=== PATIENT | female | born 2000 | race Caucasian/White ===

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

== ENCOUNTER 2021-03-24 21:20 | Inpatient (IN) ==
[2021-03-24 23:54] LABS: Hematocrit (blood only) 32.7 % (37-47); Hemoglobin 11.5 g/dL (12.0-16.0); Mean Corpuscular Hgb Conc 35.2 g/dL (32-36); Mean Corpuscular Volume 91.1 fL (80-100); Mean Platelet Volume 9.2 fL (7.4-10.4); Platelet Count 295 K/uL (130-400); RDW Coefficient of Variation 13.2 % (11.5-14.5); RDW Standard Deviation 43.8 fL (36.4-46.3); Red Blood Count 3.59 M/uL (4.2-5.4); White Blood Count 10.93 K/uL (4.8-10.8)
[2021-03-25 00:12] LABS: Alanine Aminotransferase 30 (12-78); Albumin Level 2.3 gm/dl (3.4-5.0); Aspartate Aminotransferase 23 U/L (15-37); BUN Creatinine Ratio 8.8 (10-20); Blood Urea Nitrogen 5 mg/dl (7-18); Calcium 9.1 mg/dl (8.5-10.1); Carbon Dioxide 25 mmol/L (21-32); Chloride 105 mmol/L (98-107); Creatinine Clr Calc Pharmacy 162.7 ml/min; Est GFR (African American) > 150.0 ml/min; Glucose 74 mg/dl (70-99); Potassium 3.3 mmol/L (3.5-5.1); Sodium 136 mmol/L (136-145)
[2021-03-25 00:14] LABS: Albumin Globulin Ratio 0.5 (0.9-2); Alkaline Phosphatase 194 U/L (45-117); Bilirubin,Total 0.5 mg/dl (0.2-1); Globulin 4.3 gm/dl (2.5-4.0); Total Protein 6.6 gm/dl (6.4-8.2)
[2021-03-25 01:28] LABS: Protein Creatinine Ratio Urine 0.2 (0-0.2); Total Protein Urine Random 24.1 mg/dl (0-11.9)
[2021-03-25] MEDS ORDERED: OXYTOCIN 30 UNITS/500 ML BAG IV PRN ×2 (01:46→02:02)
--- NOTE | 2021-03-25 01:52 | History & Physical Report ---
Date of Service March 25, 2021 Assessment & Plan (1) Gestational hypertension: Plan: 20 y/o G1 at 39 wga w/ gHTN VSS, mild range BPs Fetus cat 1 gHTN - pt now notes SIMMONS but it was not even bad enough to take tylenol and has had it before so do not think SF. Given GA, rec IOL Labor - 35cc kamara placed after verbal consent obtained. Will start pit, titrate to 10 while kamara in plac MJ use - UDS ordered GBS neg Epidural PRN History of Present Illness Chief Complaint: LOF Primary Care Provider: Deepak Riley, 20 y/o G1 at 39 wga w/ ROCIO 04/01 by first tri US presented earlier this evening due to complaints of LOF. She was instructed to present for eval after noting filling a pad in 30minutes with fluid. On arrival, she denied further LOF and was ruled out for rupture and SVE was unchanged from clinic visit. However, BP was noted to be mildly elevated at first, thought due to just sitting down. BPs continued to be elevated on repeat pressures and so PET labs were obtained and wnl. It was then seen that at last triage visit, she again had mild BPs. With these BPs being elevated >4 hours apart, she did meet criteria for gHTN and was recommended for IOL at this GA. Notes very slight SIMMONS but not enough to warrant tylenol. Denies vision change, CP, SOB, RUQ/epigastric pain. 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 Hx irreg periods enver had pap denies hx STIs Allergies Allergy/AdvReac Type Severity Reaction Status Date / Time No Known Drug Allergies Allergy Verified 03/23/21 09:58 Home Medications Medication Instructions Recorded Confirmed Type docusate sodium 100 mg capsule 100 mg PO DAILY 08/21/20 03/24/21 History (Colace) + Iron 1 tab PO DAILY 03/16/21 03/24/21 History Unisom SleepGels 1 tab PO HS 03/16/21 03/24/21 History Patient History Medical History (Updated 03/25/21 @ 02:06 by Lali Mcnulty MD) Depression Gastritis History of varicella vaccination IBS (irritable bowel syndrome) Surgical History (Updated 03/25/21 @ 02:04 by Lali Mcnulty MD) History of cholecystectomy S/P colonoscopy S/P wisdom tooth extraction Family History Father Hypertension Grandmother (Maternal) Colorectal cancer Denies family history of Ovarian cancer Prostate cancer Breast cancer Social History Smoking Status: Current every day smoker Tobacco Type: E-cigarettes / Vaping Second Hand Exposure: No; Hx Alcohol Use: No Hx Substance Use: Yes Non-Prescribed Medications: Marijuana Last Used Substance: Days (ago) Preferred Language: British Communication Ability: Effective Visual Impairment: Limited Hearing Ability: Normal Fiber Optics Supervisor Required: No Beliefs That Will Affect Care: None marital status: Single marital status details: Kuldeep Rios (20) [phone] Current Living Situation: Significant Other Current Living Situation Comment: Lives with fiance and fish current occupational status: student current occupation: technical expert student Other Information That Helps Us Care for You: No Feels Safe at Home: Yes Safety Concerns: Feels Safe At This Time Seatbelt Use: always Sunscreen Use: Yes Assistive Devices: Glasses Results & Data ([facility]) Vital Signs (Past 12 Hours) Vital Signs Temp Pulse Resp BP 03/25/21 01:36 82 143/89 H 03/25/21 01:18 69 119/68 03/25/21 00:48 84 137/81 03/25/21 00:19 77 138/94 03/24/21 23:48 69 157/78 H 03/24/21 23:43 83 168/88 H 03/24/21 23:28 84 163/95 H 03/24/21 23:13 81 157/95 H 03/24/21 23:04 69 157/99 H 03/24/21 22:59 72 153/89 H 03/24/21 22:45 97 H 144/83 H 03/24/21 22:41 74 148/84 H 03/24/21 22:36 85 144/86 H 03/24/21 22:31 76 141/87 H 03/24/21 22:30 75 146/94 H 03/24/21 21:45 97.9 F 18 03/24/21 21:38 102 H 139/97 Laboratory Results OB Labs: Blood Type A Negative 09/03/20 Antibody Screen NEGATIVE 01/07/21 Hemoglobin 11.3 g/dL (12.0-16.0) L 01/07/21 Hematocrit 32.7 % (37-47) L 01/07/21 Mean Corpuscular Volume 87.4 fL (80-100) 09/03/20 Platelet Count 350 K/uL (130-400) 09/03/20 Rubella IgG Antibody Immune (Immune) 09/03/20 Rapid Plasma Reagin Nonreactive (Nonreactive) 09/03/20 Hepatitis B Surface Antigen Neg (Neg) 09/03/20 HIV (1&2) Ab and P24 Ag, 4th Gener Neg (Neg) 09/03/20 Glucose 1 Hour 50 gm Load 142 mg/dl (70-130) H 01/07/21 Maternal Serum Alpha Fetoprotein 44.1 ng/mL 10/15/20 OB Optional Labs: Chlamydia trachomatis RNA NOT DETECTED (NOT DETECTED) 09/03/20 Neisseria gonorrhoeae RNA NOT DETECTED (NOT DETECTED) 09/03/20 Thyroid Stimulating Hormone (TSH) 2.880 uIu/ml (0.510-4.91) 04/15/19 Alpha Fetoprotein Triple Screen SEE NOTE 10/15/20 Labs Reviewed: low risk panorama neg cf/sma neg afp urine tox positive MJ Coding Level of Care Code None Diagnoses Gestational hypertension O13.9
[2021-03-25] MEDS: LACTATED RINGER'S 1,000 ML IV PRN ×4 (02:55→23:27)
[2021-03-25] MEDS ORDERED: ACETAMINOPHEN 500 MG TAB PO PRN (05:01)
[2021-03-25 05:59] LABS: Amphetamines+Metham, Urine Neg (Neg); Barbiturates, Urine Neg (Neg); Benzodiazepine, Urine Neg (Neg); Cocaine, Urine Neg (Neg); MDMA (Ecstacy), Urine Neg (Neg); Methadone, Urine Neg (Neg); Opiate, Urine Neg (Neg); Phencyclidine, Urine Neg (Neg)
[2021-03-25] MEDS ORDERED: MAG SULFATE 4GM BOLUS FROM BAG IV ONE (09:53)
[2021-03-25] MEDS ORDERED: SODIUM CHLORIDE 0.9% INJ 10 ML VIAL ONE (10:21)
[2021-03-25] MEDS ORDERED: ePHEDrine sulfate 50 MG/ML AMP ONE (10:21)
[2021-03-25] MEDS ORDERED: fentaNYL 2MCG/ML ROPIVACAINE 1.25MG/ML 100 ML BAG EPI ONE (10:21)
[2021-03-25] MEDS ORDERED: BUPIVACAINE 0.25% 30 ML VIAL ONE (10:21)
[2021-03-25] MEDS ORDERED: fentaNYL citrate 100 MCG/2 ML VIAL ONE (10:21)
[2021-03-25] MEDS ORDERED: ONDANSETRON INJ 2 MG/ML 2 ML VIAL IV PRN ×2 (10:51→11:40)
[2021-03-25] MEDS: MAGNESIUM SULFATE / WTR 40 GM/1,000 ML BAG IV SCH (10:59)
--- NOTE | 2021-03-25 11:21 | Anesthesiology Consultation ---
Date of Service March 25, 2021 Assessment & Plan (1) Encounter for pre-operative examination: Chart Review Chart Review: Acceptable Risk for Labor Epidural History Height/Weight Height: 5 ft 1 in Weight: 86.183 kg Allergies Allergy/AdvReac Type Severity Reaction Status Date / Time No Known Drug Allergies Allergy Verified 03/23/21 09:58 Medications Home Medications Medication Instructions Recorded Confirmed Last Taken docusate sodium 100 mg capsule 100 mg PO DAILY 08/21/20 03/24/21 03/15/21 (Colace) + Iron 1 tab PO DAILY 03/16/21 03/24/21 03/15/21 Unisom SleepGels 1 tab PO HS 03/16/21 03/24/21 03/15/21 Active Medications Generic Name Dose Route Start Last Admin Trade Name Freq PRN Reason Stop Dose Admin Acetaminophen 1,000 mg 03/25/21 05:01 03/25/21 05:08 Acetaminophen 500 Mg Tab PO 04/24/21 05:00 1,000 mg Q8 PRN Administration Pain Lactated Ringer's 1,000 mls @ 125 mls/hr 03/25/21 01:46 03/25/21 10:09 Lr IV 03/27/21 01:45 999 mls/hr .Q8H PRN Administration L&D Protocol Protocol Oxytocin 30 units in 500 mls @ 10 mls/hr 03/25/21 02:02 03/25/21 09:05 Pitocin IV 03/27/21 02:01 0.6 units/hr .Q24H PRN 10 mls/hr Labor Induction/Augmentation Titration Protocol 0.6 UNITS/HR Magnesium Sulfate 40 gm in 1,000 mls @ 50 mls/hr 03/25/21 10:00 03/25/21 10:59 Magnesium Sulfate / Wtr IV 04/24/21 09:59 200 mls/hr .Q20H ANGELO Administration Ondansetron HCl 4 mg 03/25/21 10:51 03/25/21 11:14 Ondansetron Inj 2 Mg/Ml 2 Ml Vial IV 04/24/21 10:50 4 mg Q4H PRN Administration Nausea Past Medical History Medical History (Updated 03/25/21 @ 11:21 by Fred Riggins MD) Depression Gastritis History of varicella vaccination IBS (irritable bowel syndrome) PIH ( induced hypertension) Past Family History Family History Father Hypertension Grandmother (Maternal) Colorectal cancer Denies family history of Ovarian cancer Prostate cancer Breast cancer Past Surgical History Surgical History History of cholecystectomy S/P colonoscopy S/P wisdom tooth extraction Social History Smoking Status: Current every day smoker tobacco type: e-cigarettes Hx Alcohol Use: No Hx Substance Use: Yes substance use type: marijuana Last Used Substance: Days (ago) Physical Exam Vital Signs Last Vital Signs Temp 36.6 C 03/25/21 07:30 Pulse 79 03/25/21 11:18 Resp 18 03/25/21 08:00 BP 160/109 H 03/25/21 11:15 Pulse Ox 97 03/25/21 11:18 Testing Laboratory Results 03/24/21 23:44 03/24/21 23:44
--- NOTE | 2021-03-25 11:21 | Communication Note ---
Date of Service: March 25, 2021 BP noted. Patient is experiencing severe anxiety, consistent with panic attack, since discussion of severe diagnosis and initiation of magnesium, as well as increase in discomfort after ROM occurred during last cervix exam. I am hesitant to use IV antihypertensive until we see how the impending epidural affects her BP to avoid bottoming her out. Close observation continues. At this time anxiety is present and SIMMONS, RUQ pain and vision changes are not present.
[2021-03-25] MEDS ORDERED: NALOXONE HCL 1 MG in SODIUM CHLORIDE 0.9% 1000ML 1,000 ML IV PRN (11:40)
[2021-03-25] MEDS ORDERED: ePHEDrine sulfate 50 MG/ML AMP IV PRN (11:40)
[2021-03-25] MEDS ORDERED: NALOXONE HCL 0.4 MG/1 ML VIAL/CARP IV PRN (11:40)
[2021-03-25] MEDS ORDERED: CALCIUM CARBONATE 500 MG CHEWABLE TAB PO PRN (14:10)
[2021-03-25] MEDS: fentaNYL 2MCG/ML ROPIVACAINE 1.25MG/ML 100 ML BAG EPI PRN ×3 (14:30→22:25)
[2021-03-25] MEDS ORDERED: NURSING L&D Epidural Breakthrough Pain Update ONE (14:39)
[2021-03-25] MEDS ORDERED: ROPIVACAINE 0.5% 5 MG/ML 30 ML VIAL ONE (15:09)
[2021-03-25] MEDS ORDERED: LIDOCAINE 2%/EPINEPHRINE 1:200,000 20 ML SDV ONE (15:09)
--- NOTE | 2021-03-25 17:29 | Labor Progress Brief Note ---
Date of Service March 25, 2021 Subjective Patient comfortable Assessment & Plan (1) Gestational hypertension: Plan: With severe features (BP) on magnesium Induction continues with pitocin, AROM, epidural Admission and Anticipated Discharge Date Admission Date: March 25, 2021 Physical Exam Genitourinary: LOF clear continues FHT Cat 1 [place] Q3 Results & Data ([facility]) Vital Signs (Past 12 Hours) Vital Signs Temp Pulse Resp BP Pulse Ox 03/25/21 17:24 82 137/67 03/25/21 17:23 79 97 03/25/21 17:18 88 98 03/25/21 17:13 87 99 03/25/21 17:11 76 151/87 H 03/25/21 17:08 85 99 03/25/21 17:03 106 H 99 03/25/21 17:00 18 03/25/21 16:58 83 98 03/25/21 16:55 74 130/77 03/25/21 16:53 102 H 98 03/25/21 16:48 73 98 03/25/21 16:43 72 100 03/25/21 16:39 72 124/75 03/25/21 16:38 70 100 03/25/21 16:33 75 100 03/25/21 16:30 97.7 F 18 03/25/21 16:28 72 100 03/25/21 16:24 73 122/65 03/25/21 16:23 68 100 03/25/21 16:18 102 H 100 03/25/21 16:13 75 99 03/25/21 16:10 73 129/73 03/25/21 16:08 71 100 03/25/21 16:03 79 98 03/25/21 16:00 18 03/25/21 15:58 77 100 03/25/21 15:53 97 H 126/79 99 03/25/21 15:51 76 121/79 03/25/21 15:49 67 124/79 03/25/21 15:48 92 H 98 03/25/21 15:47 73 125/83 03/25/21 15:45 88 136/76 03/25/21 15:43 102 H 136/72 100 03/25/21 15:41 99 H 134/75 03/25/21 15:39 66 136/80 03/25/21 15:38 71 99 03/25/21 15:37 69 134/80 03/25/21 15:35 93 H 140/83 03/25/21 15:33 77 127/78 99 03/25/21 15:31 76 126/80 03/25/21 15:30 16 03/25/21 15:29 78 132/80 03/25/21 15:28 83 98 03/25/21 15:27 75 128/81 03/25/21 15:25 77 136/88 03/25/21 15:23 79 139/87 100 03/25/21 15:21 76 142/88 H 03/25/21 15:19 71 138/86 03/25/21 15:18 82 98 03/25/21 15:13 80 100 03/25/21 15:12 83 138/90 03/25/21 15:10 81 148/90 H 03/25/21 15:08 66 99 03/25/21 15:03 85 100 03/25/21 15:02 73 142/89 H 03/25/21 15:00 22 03/25/21 14:58 69 99 03/25/21 14:53 71 100 03/25/21 14:48 65 98 03/25/21 14:43 75 138/84 98 03/25/21 14:38 67 99 03/25/21 14:33 65 98 03/25/21 14:32 69 145/75 H 03/25/21 14:30 18 03/25/21 14:28 71 99 03/25/21 14:23 65 100 03/25/21 14:22 68 143/76 H 03/25/21 14:18 67 99 03/25/21 14:13 61 147/79 H 100 03/25/21 14:09 75 166/73 H 03/25/21 14:08 75 99 03/25/21 14:03 84 98 03/25/21 14:02 80 165/99 H 03/25/21 14:00 98.1 F 18 03/25/21 13:58 72 98 03/25/21 13:53 68 98 03/25/21 13:52 86 139/90 03/25/21 13:48 80 98 03/25/21 13:43 63 96 03/25/21 13:42 65 133/83 03/25/21 13:38 68 96 03/25/21 13:34 61 127/75 03/25/21 13:33 65 97 03/25/21 13:28 70 97 03/25/21 13:23 71 97 03/25/21 13:22 67 133/73 03/25/21 13:18 70 97 03/25/21 13:17 69 142/84 H 03/25/21 13:13 81 98 03/25/21 13:08 63 98 03/25/21 13:03 73 133/75 98 03/25/21 13:00 18 03/25/21 12:58 65 98 03/25/21 12:53 72 98 03/25/21 12:52 61 121/61 03/25/21 12:48 65 98 03/25/21 12:43 64 138/65 98 03/25/21 12:38 65 98 03/25/21 12:33 68 98 03/25/21 12:32 65 137/61 03/25/21 12:28 63 98 03/25/21 12:23 62 138/70 99 03/25/21 12:18 64 99 03/25/21 12:13 64 98 03/25/21 12:12 60 134/74 03/25/21 12:10 58 L 137/79 03/25/21 12:08 59 L 134/73 99 03/25/21 12:06 63 140/79 03/25/21 12:04 63 146/80 H 03/25/21 12:03 72 99 03/25/21 12:02 62 139/68 03/25/21 12:01 66 144/70 H 03/25/21 12:00 98.1 F 18 03/25/21 11:58 66 136/67 98 03/25/21 11:56 66 137/79 03/25/21 11:54 68 137/83 03/25/21 11:53 70 99 03/25/21 11:52 74 142/77 H 03/25/21 11:50 69 142/79 H 03/25/21 11:48 75 137/76 99 03/25/21 11:46 78 136/78 03/25/21 11:44 72 136/80 03/25/21 11:43 77 97 03/25/21 11:42 69 135/77 03/25/21 11:40 71 141/83 H 03/25/21 11:38 72 139/67 98 03/25/21 11:37 76 170/93 H 03/25/21 11:34 87 175/106 H 03/25/21 11:33 88 98 03/25/21 11:32 98 H 173/105 H 03/25/21 11:30 16 03/25/21 11:28 98 H 99 03/25/21 11:23 85 98 03/25/21 11:18 79 97 03/25/21 11:15 93 H 160/109 H 03/25/21 11:13 84 98 03/25/21 11:08 77 98 03/25/21 11:03 77 97 03/25/21 11:00 18 03/25/21 10:58 74 98 03/25/21 10:57 85 168/113 H 03/25/21 10:53 90 98 03/25/21 10:10 75 165/97 H 03/25/21 10:09 93 H 161/114 H 03/25/21 10:00 98.1 F 03/25/21 09:49 72 160/86 H 03/25/21 08:48 79 117/67 03/25/21 08:00 18 03/25/21 07:57 80 149/77 H 03/25/21 07:30 97.9 F 18 03/25/21 07:02 63 140/79 03/25/21 06:50 55 L 132/65 03/25/21 05:48 62 122/63 Coding Level of Care Code None Diagnoses Gestational hypertension O13.9
[2021-03-25] MEDS ORDERED: miSOPROStoL 200 MCG TAB PR ONE (23:44)
--- NOTE | 2021-03-25 23:46 | Delivery Summary ---
Vaginal Delivery Summary Date of Service March 25, 2021 Vaginal Delivery Summary DIAGNOSES: 1. Rainey intrauterine at 39w0d gestation. 2. Induction of labor due to gestational hypertension 3. Group B Streptococcus neg. PROCEDURE: Spontaneous vaginal delivery without laceration. SURGEON: Francheska Adams MD. CRACK OFF PERSON: None. ESTIMATED BLOOD LOSS: 300 mL. COMPLICATIONS: None. PLACENTA: Spontaneous and intact with a 3-vessel cord. DISPOSITION: Stable to labor and delivery. DESCRIPTION: The patient pushed well and brought the head to in OA position. The infant's head was allowed to deliver with contraction force and no further active pushing, with the perineum protected during this time. There was no nuchal cord. The right shoulder was anterior. The shoulders and body delivered without any difficulty, and the infant was placed on the maternal abdomen. It was vigorous and moving all extremities, and making respiratory efforts. The cord was doubly clamped by the MD and then cut by the FOB. The placenta delivered spontaneously and was noted to be intact and with a 3VC. The cervix, vagina and perineum were examined and were found to be without defect requiring repair. The fundus was firm and lochia minimal immediately after delivery. [facility] [place] Vaginal Delivery Charge Vaginal Delivery Codes: 99350 global code for the antepartum, delivery, and post-
[2021-03-26] MEDS ORDERED: IBUPROFEN 600 MG TAB PO PRN (00:58)
[2021-03-26] MEDS ORDERED: HYDROCORTISONE ACETATE 25 MG SUPP PR PRN (00:58)
[2021-03-26] MEDS ORDERED: SUPERCREAM 0.870% 15 GM JAR EXT PRN (00:58)
[2021-03-26] MEDS ORDERED: oxyCODONE/ACETAMINOPHEN 5mg/325mg TAB PO PRN (00:58)
[2021-03-26] MEDS ORDERED: DIPHTHERIA/TETANUS/PERTUSSIS 0.5 ML SYR/VIAL IM ONE (00:58)
[2021-03-26] MEDS ORDERED: BENZOCAINE 20% AER SPR 82.5 GM CAN EXT PRN (00:58)
--- NOTE | 2021-03-26 01:18 | Anesthesia Procedure Note ---
Date of Service March 26, 2021 Anesthesia Post Epidural Note Vital Signs Vital Signs: Temp Pulse Resp BP Pulse Ox 36.8 C 98 H 18 173/102 H 100 03/26/21 00:52 03/26/21 01:13 03/26/21 00:52 03/26/21 01:07 03/26/21 01:13 Pain Intensity Lower Abdomen: Pain Intensity: 0 Notes Mental Status: alert / awake / arousable and participated in evaluation Nausea / Vomiting: adequately controlled Pain: adequately controlled Airway Patency, RR, SpO2: stable & adequate BP & HR: stable & adequate Hydration State: stable & adequate Neuraxial Anesthesia: was administered and sensory block is resolving Anesthetic Complications: no major complications apparent Epidural: Removed without complications and With tip intact
[2021-03-26] MEDS: MAGNESIUM SULFATE / WTR 40 GM/1,000 ML BAG IV SCH (01:31)
--- NOTE | 2021-03-26 05:30 | Obstetrical Progress Note ---
Date of Service March 26, 2021 Assessment & Plan (1) Encounter for care and examination after delivery: Plan: 20yo , now , PPD 1 s/p at 39 weeks -Continue routine care -Receive mag for 24 hours post delivery due to gHTN -Vitals reviewed- HDS, afebrile -A-, GBS-, Rubella immune, no Rhogam as baby is O- -Encourage ambulation, regular diet -Pain control with ibuprofen, acetaminophen PRN -Encourage -Hgb 11.5 -F/u in [address] Adams Admission and Anticipated Discharge Date Admission Date: March 25, 2021 Supervising Physician Co-Signing Physician Notes Resident Physician Supervision Note: I interviewed and examined the patient. Discussed with Dr. Alarcno and agree with findings and plan as documented in the note. Any exceptions or clarifications are listed here: [ ] Documented By: Francheksa Adams MD, FACOG Subjective PPD 1 s/p complicated by gestational HTN. Patient seen and examined at bedside. Reports no acute overnight events. Ambulating and voiding. Passing gas w/o BM. Regular diet w/o N/V. Lochia moderate per patient, changing pad at each bathroom visit. w/o complication. Pain 04/05. Review of Systems Review of Systems: Denies fevers/chills. Denies dyspnea, cough. Denies chest pain. Denies breast pain or discharge. Denies dysuria. Denies headache. Denies back pain. Physical Exam Physical Exam: General: Alert, oriented, no acute distress Cardiac: Regular rate and rhythm, normal S1, S2. No murmurs appreciated. Respiratory: Clear to auscultation b/l with good air flow entry, symmetric chest rise and fall. No wheezes or crackles. No increased work of breathing or accessory muscle use Abdomen: Soft, nontender, nondistended. Fundus firm and palpable at 2 cm below umbilicus. No guarding or rebound. Skin: No rashes or lesions Neuro: 2+ patellar reflexes b/l Extremities: Warm, dry, well-perfused with capillary refill <2s b/l. No lower extremity edema, erythema or swelling. Negative Louis's sign b/l. Results & Data ([facility]) Vital Signs (Past 12 Hours) Vital Signs Temp Pulse Resp BP Pulse Ox 12/31/21 05:24 82 97 03/26/21 05:19 80 97 03/26/21 05:14 84 97 03/26/21 05:09 81 97 03/26/21 05:04 74 97 03/26/21 04:59 81 97 03/26/21 04:54 76 97 03/26/21 04:49 82 97 03/26/21 04:44 81 97 03/26/21 04:39 81 97 03/26/21 04:34 74 98 03/26/21 04:32 110 H 92 03/26/21 04:30 16 03/26/21 04:29 101 H 99 03/26/21 04:28 116 H 134/82 03/26/21 04:24 80 96 03/26/21 04:19 83 97 03/26/21 04:14 83 97 03/26/21 04:09 82 97 03/26/21 04:04 83 97 03/26/21 03:59 81 97 03/26/21 03:54 82 97 03/26/21 03:49 93 H 98 03/26/21 03:44 92 H 98 03/26/21 03:42 99 H 145/83 H 03/26/21 03:39 116 H 100 03/26/21 03:25 37.0 C 18 03/26/21 03:21 97 H 97 03/26/21 03:16 90 99 03/26/21 03:11 111 H 100 03/26/21 03:06 101 H 98 03/26/21 03:01 97 H 98 03/26/21 02:56 110 H 99 03/26/21 02:51 113 H 99 03/26/21 02:46 97 H 99 03/26/21 02:41 87 100 03/26/21 02:40 97 H 91 03/26/21 02:36 97 H 100 03/26/21 02:31 114 H 100 03/26/21 02:30 37.0 C 18 03/26/21 02:28 105 H 144/94 H 03/26/21 02:26 108 H 100 03/26/21 02:21 108 H 100 03/26/21 01:57 95 H 99 03/26/21 01:52 101 H 99 03/26/21 01:47 94 H 99 03/26/21 01:42 103 H 98 03/26/21 01:37 111 H 100 03/26/21 01:32 107 H 98 03/26/21 01:30 18 03/26/21 01:27 122 H 99 03/26/21 01:18 107 H 100 03/26/21 01:13 98 H 100 03/26/21 01:08 98 H 99 03/26/21 01:07 90 173/102 H 03/26/21 01:03 89 96 03/26/21 00:58 93 H 99 03/26/21 00:53 99 H 100 03/26/21 00:52 36.8 C 18 03/26/21 00:51 94 H 158/92 H 03/26/21 00:48 102 H 99 03/26/21 00:43 96 H 100 03/26/21 00:38 105 H 100 03/26/21 00:36 91 H 162/93 H 03/26/21 00:33 97 H 100 03/26/21 00:28 101 H 100 03/26/21 00:23 105 H 100 03/26/21 00:22 102 H 22 166/106 H 03/26/21 00:18 101 H 100 03/26/21 00:15 36.8 C 100 H 18 166/81 H 03/26/21 00:13 107 H 100 03/26/21 00:08 111 H 100 03/26/21 00:07 108 H 179/114 H 03/26/21 00:03 106 H 100 03/25/21 23:58 106 H 18 164/102 H 99 03/25/21 23:55 96 H 170/104 H 03/25/21 23:53 103 H 100 03/25/21 23:51 120 H 92 03/25/21 23:48 111 H 100 03/25/21 23:43 117 H 100 03/25/21 23:38 114 H 100 03/25/21 23:36 109 H 18 159/91 H 03/25/21 23:33 112 H 100 03/25/21 23:28 118 H 100 03/25/21 23:23 99 H 99 03/25/21 23:21 100 H 18 140/84 03/25/21 23:18 98 H 100 03/25/21 23:13 118 H 81 L 03/25/21 23:08 108 H 99 03/25/21 23:03 106 H 100 03/25/21 23:01 107 H 83 L 03/25/21 22:58 106 H 100 03/25/21 22:56 106 H 137/96 03/25/21 22:53 106 H 100 03/25/21 22:49 107 H 93 03/25/21 22:48 103 H 100 03/25/21 22:43 98 H 100 03/25/21 22:41 93 H 161/87 H 03/25/21 22:38 115 H 99 03/25/21 22:33 115 H 100 03/25/21 22:28 102 H 100 03/25/21 22:26 96 H 140/68 03/25/21 22:23 95 H 100 03/25/21 22:18 88 99 03/25/21 22:13 92 H 99 03/25/21 22:12 90 141/69 H 03/25/21 22:08 85 99 03/25/21 22:03 80 99 03/25/21 21:58 76 97 03/25/21 21:56 82 120/64 03/25/21 21:53 114 H 100 03/25/21 21:48 108 H 100 03/25/21 21:43 88 99 03/25/21 21:40 83 18 140/73 03/25/21 21:38 86 99 03/25/21 21:35 99 H 136/75 03/25/21 21:33 99 H 131/67 95 03/25/21 21:31 125 H 114/61 03/25/21 21:29 108 H 142/92 H 03/25/21 21:28 128 H 98 03/25/21 21:27 36.8 C 127 H 22 140/88 03/25/21 21:23 106 H 100 03/25/21 21:18 99 H 100 03/25/21 21:14 92 H 185/98 H 03/25/21 21:13 92 H 99 03/25/21 21:08 105 H 100 03/25/21 21:03 112 H 97 03/25/21 20:59 92 H 179/108 H 03/25/21 20:58 97 H 100 03/25/21 20:53 100 H 100 03/25/21 20:48 102 H 100 03/25/21 20:43 96 H 100 03/25/21 20:38 94 H 100 03/25/21 20:33 86 98 03/25/21 20:29 91 H 137/81 03/25/21 20:28 86 100 03/25/21 20:27 104 H 93 03/25/21 20:23 93 H 99 03/25/21 20:18 94 H 100 03/25/21 20:13 90 97 03/25/21 20:08 87 18 100 03/25/21 20:03 95 H 99 03/25/21 19:59 97 H 152/94 H 03/25/21 19:58 106 H 97 03/25/21 19:53 95 H 97 03/25/21 19:48 101 H 99 03/25/21 19:44 87 142/82 H 03/25/21 19:43 92 H 99 03/25/21 19:38 93 H 100 03/25/21 19:33 85 100 03/25/21 19:28 91 H 151/77 H 99 03/25/21 19:24 76 141/84 H 03/25/21 19:23 81 100 03/25/21 19:18 90 100 03/25/21 19:15 37.1 C 18 98 03/25/21 19:13 92 H 100 03/25/21 19:12 90 157/86 H 03/25/21 19:10 88 156/90 H 03/25/21 19:08 94 H 154/91 H 100 03/25/21 19:06 94 H 149/83 H 03/25/21 19:04 96 H 175/86 H 03/25/21 19:03 89 99 03/25/21 19:02 90 185/106 H 03/25/21 18:59 80 92 03/25/21 18:58 77 99 03/25/21 18:53 75 100 03/25/21 18:48 91 H 100 03/25/21 18:43 81 99 03/25/21 18:40 87 153/87 H 03/25/21 18:38 86 96 03/25/21 18:33 87 100 03/25/21 18:30 36.7 C 03/25/21 18:28 90 99 03/25/21 18:25 81 154/90 H 03/25/21 18:23 85 100 03/25/21 18:18 95 H 98 03/25/21 18:13 84 99 03/25/21 18:09 88 136/82 03/25/21 18:08 84 98 03/25/21 18:03 105 H 99 03/25/21 18:00 22 03/25/21 17:58 109 H 98 03/25/21 17:55 98 H 143/83 H 03/25/21 17:53 106 H 98 03/25/21 17:48 95 H 98 03/25/21 17:43 108 H 97 03/25/21 17:39 100 H 139/76 03/25/21 17:38 77 97 03/25/21 17:33 79 97
[2021-03-26 06:50] LABS: Hematocrit (blood only) 28.4 % (37-47); Hemoglobin 9.9 g/dL (12.0-16.0); Mean Corpuscular Hemoglobin 31.5 pg (25-34); Mean Corpuscular Hgb Conc 34.9 g/dL (32-36); Mean Corpuscular Volume 90.4 fL (80-100); Mean Platelet Volume 9.3 fL (7.4-10.4); Nucleated RBC # (auto) 0.02 K/uL (0-0); Nucleated RBC % (auto) 0.1 %; Platelet Count 293 K/uL (130-400); RDW Coefficient of Variation 13.2 % (11.5-14.5); RDW Standard Deviation 43.1 fL (36.4-46.3); Red Blood Count 3.14 M/uL (4.2-5.4); White Blood Count 16.81 K/uL (4.8-10.8)
[2021-03-26] MEDS: ACETAMINOPHEN 325 MG TAB PO PRN ×3 (07:19→22:18)
[2021-03-26] MEDS: PRENATAL VITAMIN 1 TAB PO SCH (07:47)
[2021-03-26] MEDS: LACTATED RINGER'S 1,000 ML IV PRN (12:39)
[2021-03-26] MEDS ORDERED: LABETALOL HCL 100 MG TAB PO STA (15:10)
[2021-03-26] MEDS: CALCIUM CARBONATE 500 MG CHEWABLE TAB PO PRN ×2 (15:19→22:18)
[2021-03-26] MEDS ORDERED: LABETALOL HCL 100 MG TAB PO SCH (21:00)
[2021-03-27 07:06] LABS: Marijuana Quant, GCMS Urine 38 ng/mL (<5)
--- NOTE | 2021-03-27 07:28 | Obstetrical Progress Note ---
Date of Service March 27, 2021 Assessment & Plan (1) Encounter for care and examination after delivery: (2) Gestational hypertension: stable, doing well off mag. bps ok, will increase labetalol dose this am and plan 1 wk bp check in office. instructions reviewed. d/c home. Subjective Ambulation: ambulating normally Voiding: no voiding problems Diet Tolerance:: regular diet Lochia:: Small Feeding Type:: breast feeding pumping and getting baby to breast and giving formula. feels well of off Mag. would like to go home today. Adjusted her 9am dose of labetalol to 200mg. deniesn andrade or visual change or ruq pain. swelling decreased. Constitutional: + as per Subjective / HPI Physical Exam Constitutional WD/WN, vitals as above Respiratory normal respiratory effort, lungs clear to auscultation Cardiovascular Rate/Rhythm: regular rate and regular rhythm Gastrointestinal (Abdomen) Inspection/Auscultation: abdomen normal to inspection Percussion/Palpation: abdomen soft fundus firm 1 cm below umbilicus Musculoskeletal nt calves tr edema Neurologic grossly normal Psychiatric A+Ox3, euthymic affect Results & Data ([facility]) Vital Signs (Past 12 Hours) Vital Signs Temp Pulse Pulse Resp BP BP Pulse Ox 03/27/21 04:00 98.1 F 93 H 18 148/85 H 99 03/27/21 01:00 98.1 F 88 18 142/88 H 100 03/26/21 23:46 88 142/88 H 03/26/21 23:40 90 99 03/26/21 23:35 86 99 03/26/21 23:30 87 100 03/26/21 23:25 88 100 03/26/21 23:20 81 100 03/26/21 23:17 95 H 85 L 03/26/21 23:15 89 96 03/26/21 23:10 87 100 03/26/21 23:05 85 100 03/26/21 23:00 92 H 100 03/26/21 22:55 92 H 100 03/26/21 22:50 104 H 100 03/26/21 22:45 95 H 99 03/26/21 22:33 94 H 129/62 100 03/26/21 22:28 93 H 100 03/26/21 22:23 97 H 100 03/26/21 22:18 99 H 98 03/26/21 22:13 102 H 98 03/26/21 22:08 102 H 100 03/26/21 22:03 96 H 100 03/26/21 22:00 18 100 03/26/21 21:58 97 H 99 03/26/21 21:53 99 H 100 03/26/21 21:48 97 H 100 03/26/21 21:43 105 H 100 03/26/21 21:42 105 H 136/74 03/26/21 21:38 95 H 100 03/26/21 21:33 98 H 100 03/26/21 21:28 100 H 100 03/26/21 21:23 89 100 03/26/21 21:18 95 H 100 03/26/21 21:13 107 H 100 03/26/21 21:08 92 H 100 03/26/21 21:03 90 100 03/26/21 20:58 103 H 100 03/26/21 20:53 94 H 100 03/26/21 20:48 95 H 100 03/26/21 20:43 102 H 100 03/26/21 20:41 93 H 137/76 03/26/21 20:38 97 H 100 03/26/21 20:33 104 H 100 03/26/21 20:28 99 H 100 03/26/21 20:23 102 H 100 03/26/21 20:18 93 H 100 03/26/21 20:13 102 H 100 03/26/21 20:08 108 H 100 03/26/21 20:03 104 H 99 03/26/21 20:00 97.5 F L 99 H 18 142/63 H 100 03/26/21 19:58 105 H 100 03/26/21 19:44 107 H 100 03/26/21 19:39 95 H 100 03/26/21 19:34 101 H 100 03/26/21 19:29 97 H 100 03/26/21 19:28 91 H 142/63 H
[2021-03-27 07:46] LABS: Hemoglobin 9.4 g/dL (12.0-16.0)
[2021-03-27] MEDS: PRENATAL VITAMIN 1 TAB PO SCH (08:15)
[2021-03-27] MEDS ORDERED: LABETALOL HCL 200 MG TAB PO SCH (09:00)
[2021-03-27] MEDS: CALCIUM CARBONATE 500 MG CHEWABLE TAB PO PRN (09:50)
== END 2021-03-27 12:47 | disposition home or self-care (01) | DRG 807 ==
LOC: OPB 21:20 → 4S1 21:25 → 4S2 03-27 01:00